=== PATIENT | female | born 1940 | race Caucasian/White ===

== ENCOUNTER 2023-05-23 11:46 | Emergency (ER) | payer MEDICARE, OTHER, SELFPAY ==
[2023-05-23 11:49] VITALS: BP 120/72; PULSE 98; RESP 18; TEMP 36.4; O2SAT 98
--- NOTE | 2023-05-23 12:00 | DI.RAD_ITS ---
Exam(s) XR KNEE RT 3V AP,LAT,BRYAN EXAM: XR KNEE RT 3V AP,LAT,BRYAN CLINICAL HISTORY: Fall, Knee pain. TECHNIQUE: 2D digital imaging was performed of the right knee. Three views obtained. AP, lateral an d PA tunnel views were obtained. COMPARISON: No exams were available for comparison FINDINGS: BONES: No acute fracture is present. No bony destructive lesion is seen. JOINTS: The knee is normally aligned. There is a small joint effusion. There are mild degenerative c hanges of the knee. SOFT TISSUE: Normal. IMPRESSION: No acute fracture or dislocation. DATA REPOSITORY: RADIATION DOSE DELIVERED:
--- NOTE | 2023-05-23 12:09 | W.ED.GENAD ---
Discharge Plan Disposition Patient Disposition: Home Condition: Stable Discharge Details Clinical Impression: Right knee sprain Primary Care Provider: Lydia,Local ED Provider: Samaria Kevin Home Meds and New Rx's Prescriptions: Continued levothyroxine [Synthroid] 25 mcg tablet 25 mcg PO DAILY naproxen sodium [Aleve] 220 mg Tablet 220 mg PO BID PRN Discharge Instructions Instructions: Knee Sprain (ED) Additional Instructions: Wear the hinged knee brace as needed for comfort. Alternate ice and heat. Advance weightbearing as tolerated. No evidence of fracture or dislocation on the x-rays. If continued pain after 2 weeks of RICE procedures please follow-up with orthopedics if needed. Please take Tylenol or Ibuprofen with food every 4-6 hours as needed for pain and swelling. Referrals: Fernandez Eid PA [[facility]] - 2 weeks Discharge Data Discharge Date/Time-TO BE ENTERED AT DEPARTURE: 05/23/23 14:34 Medical Decision Making 83-year-old female past medical history of hypothyroidism and polio presents to the ER with right knee pain status post mechanical fall yesterday. Patient reports that she was cutting down a tree stepped back tripped over a log falling backwards. She is complaining of right knee pain. She denies hitting her head no neck or back pain. No hip pain. She is complaining of right popliteal tenderness. She reports that she hurt her hamstring approximately 6 weeks ago and may have exacerbated it. She has pain with weightbearing, flexion and extension. She did take an Aleve this morning prior to arrival. No obvious deformity or swelling noted on exam distal CMS intact. No midline CT or L-spine tenderness. She is alert and oriented x4. She does normally walk with a cane due to the previous polio worse on her left leg. Tylenol and x-ray of knee ordered. X-ray within normal limits, no obvious fracture dislocation. Patient placed in a hinged knee brace discussed home care and follow-up care she verbalized understanding. I did offer crutches which she declined she does use walking sticks on a normal daily basis. Discussed follow-up with orthopedics for further eval if needed. Discussed RICE procedures. This text was generated using [employer] system, please disregard any oddities of phrase or misspellings. Imaging Data Radiologic Study: Imaging: X-Ray Radiologist's impression: PROCEDURE INFORMATION: Exam: XR Right Knee Exam date and time: 05/23/2023 12:53 PM Age: 83 years old Clinical indication: Pain and injury or trauma; Fall; Sprain or strain; Patella or knee; Right TECHNIQUE: Imaging protocol: Radiologic exam of the right knee. Views: 3 views. COMPARISON: No relevant prior studies available. FINDINGS: Bones/joints: Mild asymmetric narrowing of the medial femoral tibial joint. Normal bone mineralization. No fracture or dislocation. Minimal degenerative changes of the patella femoral joint. No joint effusion. Soft tissues: Unremarkable. IMPRESSION: No evidence for acute bony injury. If clinical symptoms persist recommend followup film in 7-10 days. Dictated and Authenticated by: Zeny Victoria MD. Ordering:SHANIKA Mera MD HPI General Mode of arrival: ambulatory. Date/Time Provider Initiated Documentation: 05/23/23 11:58. Limitations to Documentation: no limitations. Information obtained by: patient, RN notes reviewed and old records reviewed. HPI Narrative: 83-year-old female past medical history of hypothyroidism and polio presents to the ER with right knee pain status post mechanical fall yesterday. Patient reports that she was cutting down a tree stepped back tripped over a log falling backwards. She is complaining of right knee pain. She denies hitting her head no neck or back pain. No hip pain. She is complaining of right popliteal tenderness. She reports that she hurt her hamstring approximately 6 weeks ago and may have exacerbated it. She has pain with weightbearing, flexion and extension. She did take an Aleve this morning prior to arrival. No obvious deformity or swelling noted on exam distal CMS intact. No midline CT or L-spine tenderness. She is alert and oriented x4. She does normally walk with a cane due to the previous polio worse on her left leg. Related Data Home Medications Medication Instructions Recorded Confirmed levothyroxine 25 mcg tablet 25 mcg PO DAILY 05/23/23 05/23/23 (Synthroid) naproxen sodium 220 mg tablet 220 mg PO BID PRN 05/23/23 05/23/23 (Aleve) Allergies Allergy/AdvReac Type Severity Reaction Status Date / Time No Known Allergies Allergy Unverified 05/23/23 12:04 General Stated Complaint: Orthopedic ERNESTINA: 4 Review of Systems All systems reviewed & are unremarkable except as noted in HPI and below Musculoskeletal Musculoskeletal: Reports as per HPI, Reports abnormal gait, Reports arthralgias and Reports tingling (Distally right lower extremity) Neurologic Neurologic: Reports abnormal gait and Reports tingling (Distally right lower extremity) PFSH All Active Problems (Updated 05/23/23 @ 13:43 by Samaria Kevin NP) Right knee sprain (Acute) Social History Smoking risk assessment performed?: No Do you feel safe at home: Yes Do you feel safe in your relationship?: Yes Exam Extrem General: normal to inspection Right lower extremity: normal to inspection and knee Details: tenderness Location: of the popliteal fossa (With passive flexion extension and weightbearing) and knee ligament exam normal; no deformity Course Vital Signs Vital signs: Vital Signs Temperature 36.4 C L 05/23/23 11:49 Pulse 98 H 05/23/23 11:49 Respiratory Rate 18 05/23/23 11:49 Blood Pressure 120/72 05/23/23 11:49 Pulse Oximetry 98 05/23/23 11:49 Temperature 36.4 C L 05/23/23 11:49 Temperature Source Temporal Artery Scan 05/23/23 11:49 Pulse 98 H 05/23/23 11:49 Respiratory Rate 18 05/23/23 11:49 Respiratory Effort Normal, Non-Labored 05/23/23 11:52 Blood Pressure 120/72 05/23/23 11:49 Blood Pressure Position Sitting 05/23/23 11:49 Pulse Oximetry 98 05/23/23 11:49 Oxygen Delivery Method Room Air 05/23/23 11:49 Oxygen Flow Rate 0 05/23/23 11:49 Pain Level 8 05/23/23 11:57
[2023-05-23] MEDS: Acetaminophen 500 MG TAB PO (12:29)
--- NOTE | 2023-05-23 13:23 | DI.VRAD_ITS ---
PROCEDURE INFORMATION: Exam: XR Right Knee Exam date and time: 05/23/2023 12:53 PM Age: 83 years old Clinical indication: Pain and injury or trauma; Fall; Sprain or strain; Patella or knee; Right TECHNIQUE: Imaging protocol: Radiologic exam of the right knee. Views: 3 views. COMPARISON: No relevant prior studies available. FINDINGS: Bones/joints: Mild asymmetric narrowing of the medial femoral tibial joint. Normal bone mineralization. No fracture or dislocation. Minimal degenerative changes of the patella femoral joint. No joint effusion. Soft tissues: Unremarkable. IMPRESSION: No evidence for acute bony injury. If clinical symptoms persist recommend followup film in 7-10 days. Dictated and Authenticated by: Zeny Victoria MD. Ordering:SHANIKA Mera MD
== END 2023-05-23 14:34 | disposition home or self-care (01) ==
PROVIDERS: Emergency Provider Registered Nurse Emergency
DX: S83.91XA Sprain of unspecified site of right knee, initial encounter; W01.0XXA Fall on same level from slipping, tripping and stumbling without subsequent striking against object, initial encounter; Y93.H9 Activity, other involving exterior property and land maintenance, building and construction
CPT/HCPCS: 29505; 73562; 99283

== ENCOUNTER 2024-04-12 15:21 | Emergency (ER) | payer MEDICARE, OTHER, SELFPAY ==
[2024-04-12 15:27] VITALS: BP 123/69; PULSE 110; RESP 16; TEMP 36.6; O2SAT 96
--- NOTE | 2024-04-12 15:45 | DI.RAD_ITS ---
Exam(s) XR RIBS RT PA CHEST 3V EXAM: XR RIBS RT PA CHEST 3V CLINICAL HISTORY: fall, right posterior flank pain. TECHNIQUE: 2D digital imaging was performed. COMPARISON: No exams were available for comparison FINDINGS: Total four views Right ribs-two views: Limited two view study the right rib cage does not reveal evidence of an obviou s rib fracture. Ipsilateral clavicle is intact as is the glenohumeral joint. Chest x-ray-2 views: Heart size normal. Mediastinum not widened. There no infiltrates nor pleural e ffusions. No pneumothorax. No lung contusion. Calcified granuloma noted in the mid right lung fiel d. IMPRESSION: No obvious right rib fractures. No lung contusion. No pneumothorax. No pleural effusion. DATA REPOSITORY: RADIATION DOSE DELIVERED:
--- NOTE | 2024-04-12 15:45 | DI.RAD_ITS ---
Exam(s) XR PELVIS AP EXAM: XR PELVIS AP CLINICAL HISTORY: fall, right posterior hip back flank pain. TECHNIQUE: 2D digital imaging was performed. COMPARISON: No exams were available for comparison FINDINGS: Single AP view of the pelvis/hips: No evidence of obvious fracture of the pelvic bones. There is no oblique line in the right femoral n casper which does not have typical appearance of a fracture. There is no hip joint space narrowing on e ither side. Sacroiliac joints appear unremarkable. No significant osseous lesions. IMPRESSION: Linear lucency in the right femoral head-neck which does not have the appearance of a typical fractur e line. However, if there is right hip pain than additional hip views would be recommended DATA REPOSITORY: RADIATION DOSE DELIVERED:
--- NOTE | 2024-04-12 16:09 | ED.GENADUL_ITS ---
Discharge Plan Disposition Patient Disposition: Home Condition: Improving Discharge Details Clinical Impression: Contusion of flank Primary Care Provider: Unknown,Unknown ED Provider: Дмитрий Andrews Home Meds and New Rx's Prescriptions: New lidocaine [Lidoderm] 5 % adhesive patch,medicated 1 patch topical DAILY Qty: 15 0RF Rx Instructions: leave on most painful area for up to 12 hrs cyclobenzaprine 5 mg tablet 5 mg PO QHS PRN (Reason: muscle spasm) Qty: 7 0RF No Action loratadine [Allergy Relief (loratadine)] 10 mg tablet 10 mg PO DAILY aspirin 81 mg capsule 81 mg PO DAILY diltiazem HCl 120 mg capsule,extended release 24hr PO DAILY Rx Instructions: unsure of dosing atomoxetine 40 mg capsule 40 mg PO DAILY Patient Comments: TAKE 1 CAPSULE BY MOUTH EVERY DAY atorvastatin 20 mg tablet PO DAILY Patient Comments: TAKE 1 TABLET BY MOUTH EVERY DAY Rx Instructions: unsure of dosing levothyroxine [Synthroid] 25 mcg tablet 25 mcg PO DAILY Discharge Instructions Instructions: Minor Contusion ED Additional Instructions: Please continue with ice or heat whatever feels better, rest ibuprofen acetaminophen as needed, please return to the emergency department any worsening symptoms. HPI General Date/Time Provider Initiated Documentation: 04/12/24 15:41 . HPI Narrative: 83-year-old female presents 3 days post slip and fall striking her back on a seat, pain to right flank radiating into hip; able to ambulate however is having lower back discomfort Related Data Home Medications ?Medication ?Instructions ?Recorded ?Confirmed levothyroxine 25 mcg tablet 25 mcg PO DAILY 05/23/23 04/12/24 (Synthroid) aspirin 81 mg capsule 81 mg PO DAILY 04/12/24 04/12/24 atomoxetine 40 mg capsule 40 mg PO DAILY 04/12/24 04/12/24 atorvastatin 20 mg tablet mg PO DAILY 04/12/24 cyclobenzaprine 5 mg tablet 5 mg PO QHS PRN muscle spasm #7 04/12/24 tabs diltiazem HCl 120 mg mg PO DAILY 04/12/24 capsule,extended release 24 hr lidocaine 5 % topical patch 1 patch topical DAILY #15 ea 04/12/24 (Lidoderm) loratadine 10 mg tablet (Allergy 10 mg PO DAILY 04/12/24 04/12/24 Relief (loratadine)) Previous Rx's ?Medication ?Instructions ?Recorded cyclobenzaprine 5 mg tablet 5 mg PO QHS PRN muscle spasm #7 04/12/24 tabs lidocaine 5 % topical patch 1 patch topical DAILY #15 ea 04/12/24 (Lidoderm) Allergies Allergy/AdvReac Type Severity Reaction Status Date / Time No Known Allergies Allergy Unverified 04/12/24 15:48 General Stated Complaint: Nk/Back Pain ERNESTINA: 3 Exam Narrative Exam Narrative: Mildly uncomfortable on examination No midline spinal tenderness step-off crepitus or deformity Patient does have some right paraspinal lumbar discomfort, superficial abrasion in this area Pelvis stable full range of motion of lower extremities ambulatory without assistance 5-5 strength upper and lower extremities bilaterally no sensory deficits Course Vital Signs Vital signs: Vital Signs Temperature 36.6 C 04/12/24 15:27 Pulse 110 H 04/12/24 15:27 Respiratory Rate 16 04/12/24 15:27 Blood Pressure 123/69 04/12/24 15:27 Pulse Oximetry 96 04/12/24 15:27 Temperature 36.6 C 04/12/24 15:27 Temperature Source Temporal Artery Scan 04/12/24 15:27 Pulse 110 H 04/12/24 15:27 Respiratory Rate 16 04/12/24 15:27 Respiratory Effort Normal 04/12/24 15:56 Blood Pressure 123/69 04/12/24 15:27 Blood Pressure Position Sitting 04/12/24 15:27 Pulse Oximetry 96 04/12/24 15:27 Oxygen Delivery Method Room Air 04/12/24 15:27 Oxygen Flow Rate 0 04/12/24 15:27 Pain Level 1 04/12/24 15:27 Medical Decision Making 83-year-old female presents 3 days post slip and fall striking her back on a seat, pain to right flank radiating into hip; able to ambulate however is having lower back discomfort; No midline spinal tenderness step-off crepitus or deformity; Patient does have some right paraspinal lumbar discomfort, bergman perficial abrasion in this area; pelvis stable full range of motion of lower extremities ambulatory without assistance; 5-5 strength upper and lower extremities bilaterally no sensory deficits; consider flank contusion v rib fracture v pelvic fracture, lower suspicion for spinal fracture, no evidence of cauda equina; will obtain xr pelvis, xr ribs and ap chest; trial of analgesia, antiinflamatory 17: 02 patient rest comfortably no acute distress feeling much better after medication. Incidental lucency of the femoral neck on x-ray however patient has no point tenderness and has full range of motion of her right hip is ambulatory without deficits has no pain that correlates with x-ray finding. Offered x-ray here to confirm here department patient feels more comfortable returning for worsening symptoms or if symptoms are not improving Quality:SDOH Health Related Social Needs: No Data to Display PFSH All Active Problems (Updated 04/12/24 @ 17:04 by Дмитрий nAdrews MD) Contusion of flank (Acute) Social History Smoking risk assessment performed?: No Do you feel safe at home: Yes Do you feel safe in your relationship?: Yes
[2024-04-12] MEDS: Ketorolac 15 MG/ML VIAL IM (16:20)
[2024-04-12] MEDS: Lidocaine 5% Patch 1 PATCH TP (16:46)
[2024-04-12 17:07] VITALS: BP 134/73; PULSE 109; RESP 18; TEMP 37; O2SAT 96
== END 2024-04-12 17:10 | disposition home or self-care (01) ==
PROVIDERS: Emergency Provider Emergency Medicine
DX: S30.1XXA Contusion of abdominal wall, initial encounter (principal); R10.31 Right lower quadrant pain; M54.50 Low back pain, unspecified; W01.198A Fall on same level from slipping, tripping and stumbling with subsequent striking against other object, initial encounter
CPT/HCPCS: 96374; 99284; 71046; 71100; 72170; 99283; J1885